=== PATIENT | female | born 1955 | race Caucasian/White ===

== ENCOUNTER 2018-11-09 11:39 | Outpatient (REF) | payer MEDICARE, BC, SELFPAY ==
--- NOTE | 2018-11-09 10:00 | PAPFT_PTH ---
PATIENT: Mag Dan LOC: [facility] U#:[id number] AGE/SX: 63/F ROOM: RE11/09/[address]: Aleks Gonzalez MD : 1955 BED: DIS: 11/09/2018 SPEC #: [id number] RECD: 11/09/18 12:49 STATUS: CUONG REQ #: [id number] DERRICK: 11/09/18 10:[address]: Aleks Gonzalez DEPT: [facility] Cytology RECD BY: Shabnam Maria Tissues: 1 - CX/ENDOCX FOR PAP SMEARS Procedures: PAP THIN PREP/UVM Screening Comments: [id number] (UNSATISFACTORY FOR EVALUATION)
== END 2018-11-09 11:59 ==
LOC: LBN 11:39
PROVIDERS: PCP Family Medicine; Visit Provider Family Medicine
DX: Z12.4 Encounter for screening for malignant neoplasm of cervix (principal); Z11.51 Encounter for screening for human papillomavirus (HPV)
CPT/HCPCS: 88142; 87624

== ENCOUNTER 2019-01-03 09:04 | Outpatient (CLI) | payer MEDICARE, BC, SELFPAY ==
[2019-01-03 11:57] LABS: Hemoglobin A1C 5.6 % (4.5-6.2)
[2019-01-03 12:32] LABS: Anion Gap 6.7 mmol/L (3-11); BUN 21 mg/dL (7-18); CO2 32.3 mmol/L (21.0-32.0); CREATININE 0.92 mg/dL (0.55-1.02); Calcium 9.1 mg/dL (8.5-10.1); Chloride 103 mmol/L (98-107); Cholesterol 181 mg/dL (50-200); Glucose 122 mg/dL (70-100); HDL Cholesterol 34 mg/dL (40-60); LDL CHOLESTEROL 93 mg/dL (<100); Potassium 3.2 mmol/L (3.5-5.1); Sodium 142 mmol/L (136-145); TSH 1.24 uIU/mL (0.358-3.74); Triglyceride 272 mg/dL (30-150)
== END 2019-01-03 09:24 ==
PROVIDERS: PCP Family Medicine; Visit Provider Family Medicine
DX: I10 Essential (primary) hypertension (principal); E03.9 Hypothyroidism, unspecified; R73.9 Hyperglycemia, unspecified; E66.9 Obesity, unspecified
CPT/HCPCS: 36415; 80048; 80061; 83721; 83036; 84443

== ENCOUNTER 2019-11-24 07:00 | Outpatient (CLI) | payer MEDICARE, BC, SELFPAY ==
[2019-11-24 13:47] LABS: Anion Gap 6.5 mmol/L (3-11); BUN 18 mg/dL (7-18); CO2 31.5 mmol/L (21.0-32.0); CREATININE 0.81 mg/dL (0.55-1.02); Chloride 103 mmol/L (98-107); Glucose 122 mg/dL (74-106); Potassium 3.6 mmol/L (3.5-5.1); Sodium 141 mmol/L (136-145); TSH 1.68 uIU/mL (0.36-3.74)
== END 2019-11-24 07:20 ==
PROVIDERS: PCP Family Medicine; Visit Provider Family Medicine
DX: I10 Essential (primary) hypertension (principal)
CPT/HCPCS: 36415; 80048; 84443

== ENCOUNTER 2019-11-24 16:49 | Outpatient (REF) | payer MEDICARE, BC, SELFPAY ==
--- NOTE | 2019-11-24 10:00 | PAPFT_PTH ---
PATIENT: Mag Dan LOC: [facility] U#:[id number] AGE/SX: 64/F ROOM: RE11/24/[address]: Aleks Gonzalez MD : 1955 BED: DIS: 11/24/2019 SPEC #: [id number] RECD: 11/24/19 18:03 STATUS: CUONG REQ #: [id number] DERRICK: 11/24/19 10:[address]: Aleks Gonzalez DEPT: [facility] Cytology RECD BY: Shabnam Maria Tissues: 1 - CX/ENDOCX FOR PAP SMEARS Procedures: PAP THIN PREP/UVM Screening HPV DNA PROBE Comments: [id number]
== END 2019-11-24 17:09 ==
LOC: LBN 16:49
PROVIDERS: PCP Family Medicine; Visit Provider Family Medicine
DX: Z12.4 Encounter for screening for malignant neoplasm of cervix (principal)
CPT/HCPCS: 88142; 87624

== ENCOUNTER 2019-12-26 01:39 | Outpatient (CLI) | payer MEDICARE, BC, SELFPAY ==
--- NOTE | 2019-12-26 10:40 | DI.MAMMO_ITS ---
EXAM: MG MAMMO SCREENING CLINICAL HISTORY: screening, Z12.39. TECHNIQUE: Bilateral full field digital CC and MLO mammographic images were obtained with 3D tomosyn thesis and utilizing computer aided detection (CAD). COMPARISON: Available for comparison. FINDINGS: Masses/Architectural Distortion: None seen. Microcalcifications: No suspicious pleomorphic-type are seen. Skin Thickening/Nipple Retraction: None. IMPRESSION: 1. No significant interval change with no specific features of malignancy noted. 2. Unless there is more urgent need, screening mammography is recommended, as per [employer] guidelines. ACR BI-RAD Category- 1 Negative Breast Density - Category B - Scattered areas of fibroglandular density A negative radiographic report should not delay biopsy if a dominant or clinically suspicious mass is present. Up to ten percent of cancers are not identified on mammography. A negative report may reinforce clinical impression. Adenosis and dense breasts may obscure an underlying neoplasm. False positive reports average 6 to 10%. Patient will receive a letter notifying them of these results.
== END 2019-12-26 01:59 ==
PROVIDERS: PCP Family Medicine; Visit Provider Family Medicine
DX: Z12.31 Encounter for screening mammogram for malignant neoplasm of breast (principal)
CPT/HCPCS: 77063; 77067

== ENCOUNTER 2020-12-24 04:19 | Outpatient (CLI) | payer MEDICARE, BC, SELFPAY ==
[2020-12-24 12:59] LABS: Hemoglobin A1C 5.8 % (<5.7)
[2020-12-24 13:46] LABS: CREATININE 0.8 mg/dL (0.55-1.02); Calculated LDL 100 mg/dL (<100); Cholesterol 198 mg/dL (<200); HDL Cholesterol 36 mg/dL (40-60); Potassium 3.5 mmol/L (3.5-5.1); TSH 1.28 uIU/mL (0.36-3.74); Triglyceride 310 mg/dL (<150)
== END 2020-12-24 04:39 ==
PROVIDERS: PCP Nurse Practitioner; Visit Provider Nurse Practitioner
DX: I10 Essential (primary) hypertension (principal); E66.09 Other obesity due to excess calories; R73.09 Other abnormal glucose; Z86.39 Personal history of other endocrine, nutritional and metabolic disease
CPT/HCPCS: 36415; 80061; 82565; 83036; 84132; 84443

== ENCOUNTER 2021-01-02 02:04 | Outpatient (CLI) | payer MEDICARE, BC, SELFPAY ==
--- NOTE | 2021-01-02 07:15 | DI.MAMMO_ITS ---
EXAM: MAMMO SCREENING CLINICAL HISTORY: screening,Z12.39 TECHNIQUE: Mammograms were interpreted according to the usual protocol including computer analysis w Boni CAD system, tomosynthesis and C-view imaging. COMPARISON: 2011 through 2019 FINDINGS: The breasts are composed of scattered fibroglandular densities, Breast Density category B. No suspicious masses or suspicious microcalcifications are seen. No skin thickening or abnormal axillary lymph nodes are seen. There has been no significant change from prior exams. IMPRESSION: BI-RADS Category 1, Negative mammogram Yearly screening mammography is recommended. Breast Density - Category B, scattered fibroglandular densities. A negative radiographic report should not delay biopsy if a dominant or clinically suspicious mass is present. Up to ten percent of cancers are not identified on mammography. A negative report may reinforce clinical impression. Adenosis and dense breasts may obscure an underlying neoplasm. False positive reports average 6 to 10%. Patient will receive a letter notifying them of these results.
== END 2021-01-02 02:05 ==
LOC: DI 02:04
PROVIDERS: PCP Nurse Practitioner; Visit Provider Nurse Practitioner
DX: Z12.31 Encounter for screening mammogram for malignant neoplasm of breast (principal)
CPT/HCPCS: 77063; 77067

== ENCOUNTER 2021-10-21 09:30 | Outpatient (CLI) | payer MEDICARE, BC, SELFPAY ==
--- NOTE | 2021-10-21 08:45 | DI.RAD_ITS ---
Exam(s) XR HIP RT COMPLETE AP PELVIS EXAM: XR HIP RT COMPLETE AP PELVIS CLINICAL HISTORY: R hip pain. TECHNIQUE: 2D digital imaging was performed. COMPARISON: No exams were available for comparison FINDINGS: No evidence of pelvic nor hip fracture. However, there is advanced osteoarthritic degenerative real e in the right hip joint space narrowing and femoral head osteophytes. Similar findings are not seen in the opposite-left hip although there is a benign cyst in the left femoral neck noted. IMPRESSION: Advanced osteoarthritic degenerative changes in the right hip joint. DATA REPOSITORY: RADIATION DOSE DELIVERED:
--- NOTE | 2021-10-21 08:45 | DI.RAD_ITS ---
Exam(s) XR KNEE RT 3V AP,LAT,JENNIFER EXAM: XR KNEE RT 3V AP,LAT,JENNIFER CLINICAL HISTORY: knee pain. TECHNIQUE: 2D digital imaging was performed. COMPARISON: CR XR KNEE LT 3V AP,LAT,JENNIFER from 10/21/2021 FINDINGS: There is no evidence of fracture although there does appear to be a moderate-sized joint effusion. There are advanced osteoarthritic degenerative changes, including [id number] narrowing of the later al compartment. Moderate degenerative changes in the medial compartment and patellofemoral compartme nts. There is a calcified body noted posteriorly measuring 1.7 x 1.6 cm. This seems to be located p osterolateral and may be a prominent fabella. IMPRESSION: Advanced osteoarthritic degenerative changes, most prominent in the lateral compartment. DATA REPOSITORY: RADIATION DOSE DELIVERED:
--- NOTE | 2021-10-21 08:45 | DI.RAD_ITS ---
Exam(s) XR KNEE LT 3V AP,LAT,JENNIFER EXAM: XR KNEE LT 3V AP,LAT,JENNIFER CLINICAL HISTORY: knee pain. TECHNIQUE: 2D digital imaging was performed. COMPARISON: No exams were available for comparison FINDINGS: There is no evidence of fracture. Small joint effusion. Advanced osteoarthritic degenerative change s in all 3 compartments with [id number] narrowing of both medial lateral compartments on the weight -bearing view. Also advanced severe degenerative change narrowing and osteophytes in the patellofemo ral compartment. Posteriorly there is a prominent calcific density, possibly large fabella. Cannot exclude large posterior calcified loose intra-articular body IMPRESSION: Severe advanced tricompartment osteoarthritic degenerative changes, as described above. DATA REPOSITORY: RADIATION DOSE DELIVERED:
== END 2021-10-21 09:31 | disposition home or self-care (01) ==
LOC: DIORS 09:30
PROVIDERS: PCP Nurse Practitioner; Referring Provider Nurse Practitioner; Visit Provider Student in an Organized Health Care Education/Training Program
DX: M25.551 Pain in right hip (principal); M25.561 Pain in right knee; M16.11 Unilateral primary osteoarthritis, right hip; M17.11 Unilateral primary osteoarthritis, right knee; M17.12 Unilateral primary osteoarthritis, left knee; M25.562 Pain in left knee
CPT/HCPCS: 73562; 99203; 73502

== ENCOUNTER 2021-11-07 01:34 | Outpatient (CLI) | payer MEDICARE, BC, SELFPAY ==
--- NOTE | 2021-11-07 14:00 | DI.RAD_ITS ---
Exam(s) RF JOINT INJECTION FLUORO GUID EXAM: RF JOINT INJECTION FLUORO GUID CLINICAL HISTORY: R HIP INJ UNDER FLUORO,PRIMARY OA RT HIP,M16.11,FLUORO GUIDED INJECTION TECHNIQUE: Fluoroscopy provided. Radiologist not present. CONTRAST MATERIAL: None COMPARISON: No exams were available for comparison FINDINGS: Fluoroscopy was provided for Dr. Godwin during right hip injection. Submitted image(s) reveal needle placement from lateral aspect at the level of the lateral femoral he ad/neck junction. Intra-articular was injected Please refer to the procedure report for complete details. Cumulative Dose: sky Orr=0.867 mGy IMPRESSION: RADIATION DOSE DELIVERED:
[2021-11-07] MEDS: methylPREDNISolone ACETATE 80 MG/ML VIAL IM (14:01)
[2021-11-07] MEDS: Omnipaque 300 MG/ML 10 ML BTL IJ (14:02)
[2021-11-07] MEDS: Bupivacaine 0.5% Pres-Free 10 ML VIAL 5 ML IJ (14:03)
--- NOTE | 2021-11-07 14:05 | W.PROCNOTE ---
Date of service: 11/07/21 Time of Service: 14:05 Procedure Note Date of procedure: 11/07/21 Procedure: Right Hip Injection with Fluoroscopic Guidance Surgeon/Proceduralist/Physician: Agusto Godwin Procedure Diagnosis: Right Hip Osteoarthritis Procedure Indications: Mag has had persistent pain of the RIGHT hip and groin. Noninvasive measures have been tried. To serve as both diagnostic and therapeutic, an injection under fluoroscopy was recommended. I had discussed the risks of the procedure and the patient elected to proceed. Procedure Description: Mag was greeted in the flouroscopy room. The correct side was identified and the consent was reviewed with the patient and signed. The patient was then placed in the supine position on the fluoroscopy table. The RIGHT hip was then prepped with Chloraprep. The anterolateral injection starting point was identiifed by bony landmarks and fluoroscopy. The skin and soft tissue in the tract of the injection was anesthetized with 1% Lidocaine. A spinal needle was then inserted deep into the hip joint at the level of the lateral femoral neck under fluoroscopic guidance. A small amount of Omnipaque solution was injected to confirm intraarticular placement. Once confirmed, the hip was injected with 6cc of 0.5% Bupivicaine and 80mg of Depo-Medrol. A bandaid was placed on the injection site. The patient tolerated the procedure well and noted improvement in pre-injection pain.
--- NOTE | 2021-11-07 14:39 | OPPNE_ITS ---
Date of service: 11/07/21
--- NOTE | 2021-11-07 14:39 | W.PROCNOTE ---
Date of service: 11/07/21
== END 2021-11-07 01:54 ==
PROVIDERS: PCP Nurse Practitioner; Visit Provider Student in an Organized Health Care Education/Training Program
DX: M16.11 Unilateral primary osteoarthritis, right hip (principal); M25.551 Pain in right hip; R10.31 Right lower quadrant pain; M17.12 Unilateral primary osteoarthritis, left knee
CPT/HCPCS: 20610; 77002; J1040

== ENCOUNTER 2022-01-06 01:37 | Outpatient (CLI) | payer MEDICARE, BC, SELFPAY ==
[2022-01-06 10:41] LABS: Hemoglobin A1C 5.7 % (<5.7)
[2022-01-06 11:10] LABS: BUN 24 mg/dL (7-18); CREATININE 0.8 mg/dL (0.55-1.02); Calcium 8.7 mg/dL (8.5-10.1); Chloride 104 mmol/L (98-107); Cholesterol 161 mg/dL (<200); Glucose 118 mg/dL (74-106); HDL Cholesterol 31 mg/dL (40-60); Potassium 3.5 mmol/L (3.5-5.1); Sodium 142 mmol/L (136-145); TSH 1.36 uIU/mL (0.36-3.74); Triglyceride 460 mg/dL (<150)
[2022-01-06 11:29] LABS: LDL CHOLESTEROL 56 mg/dL (<100)
== END 2022-01-06 01:38 | disposition home or self-care (01) ==
LOC: LBO 01:37
PROVIDERS: PCP Nurse Practitioner; Visit Provider Nurse Practitioner
DX: E03.9 Hypothyroidism, unspecified (principal); I10 Essential (primary) hypertension; R73.03 Prediabetes; E78.1 Pure hyperglyceridemia; E78.6 Lipoprotein deficiency
CPT/HCPCS: 36415; 80048; 80061; 83721; 83036; 84443

== ENCOUNTER 2022-03-03 14:43 | Outpatient (CLI) | payer MEDICARE, BC, SELFPAY ==
--- NOTE | 2022-03-03 14:30 | DI.RAD_ITS ---
Exam(s) XR HIP RT COMPLETE AP PELVIS EXAM: XR HIP RT COMPLETE AP PELVIS INDICATION: preop. COMPARISON: CR XR HIP RT COMPLETE AP PELVIS from 10/21/2021 TECHNIQUE: 2D digital imaging was performed. Two views. FINDINGS: The vast degenerative changes of the right hip are again noted with joint space narrowing and promine nt periarticular spurring as well as sclerosis and subchondral cyst formation. Mild degenerative ro nges are noted of the right hip. IMPRESSION: Stable advanced degenerative changes of right hip. DATA REPOSITORY: RADIATION DOSE DELIVERED:
== END 2022-03-03 14:44 | disposition home or self-care (01) ==
LOC: DIORS 14:44
PROVIDERS: PCP Nurse Practitioner; Referring Provider Nurse Practitioner; Visit Provider Student in an Organized Health Care Education/Training Program
DX: M16.11 Unilateral primary osteoarthritis, right hip (principal); M17.12 Unilateral primary osteoarthritis, left knee; M17.11 Unilateral primary osteoarthritis, right knee
CPT/HCPCS: 20610; 73502; J1040

== ENCOUNTER → 2022-03-27 13:50 | Outpatient (BNVA) | payer MEDICARE, BC, SELFPAY | PROVIDERS: PCP Nurse Practitioner; Referring Provider Nurse Practitioner; Visit Provider Physician Assistant | DX: M16.11 Unilateral primary osteoarthritis, right hip (principal) ==

== ENCOUNTER 2022-04-07 03:01 | Outpatient (CLI) | payer MEDICARE, BC, SELFPAY | END 2022-04-07 03:02 | disposition home or self-care (01) | LOC: LBO 03:01 | PROVIDERS: PCP Nurse Practitioner; Visit Provider Student in an Organized Health Care Education/Training Program ==

== ENCOUNTER 2022-04-07 03:17 | Outpatient (CLI) | payer MEDICARE, BC, SELFPAY ==
[2022-04-07 10:51] LABS: HGB 12.7 g/dL (11.2-15.7); MCH 29.4 pg (27.0-33.0); MCHC 33.4 % (32.0-36.0); MCV 88 fL (80-95); MPV 10.2 fL (8.0-11.0); Platelet Count 202 10^3/uL (130-400); RBC 4.32 10^6/uL (3.93-5.22); RDW 13.1 % (11.7-14.6); RDW-SD 42.2 fL; WBC 6.36 10^3/uL (4.4-10.8)
[2022-04-07 11:12] LABS: Hemoglobin A1C 5.6 % (<5.7)
[2022-04-07 11:42] LABS: Anion Gap 6.7 mmol/L (3-11); BUN 21 mg/dL (7-18); CO2 29.3 mmol/L (21.0-32.0); CREATININE 0.8 mg/dL (0.55-1.02); Calcium 8.8 mg/dL (8.5-10.1); Chloride 104 mmol/L (98-107); Glucose 113 mg/dL (74-106); Potassium 3.6 mmol/L (3.5-5.1); Sodium 140 mmol/L (136-145)
[2022-04-07 12:55] LABS: Source Nasal/Nares
[2022-04-07 17:42] LABS: COVID-19 PCR Negative (Negative)
== END 2022-04-07 03:18 | disposition home or self-care (01) ==
LOC: LBO 03:18
PROVIDERS: PCP Nurse Practitioner; Visit Provider Student in an Organized Health Care Education/Training Program
DX: M16.11 Unilateral primary osteoarthritis, right hip (principal); Z01.818 Encounter for other preprocedural examination; R73.03 Prediabetes; Z20.822 Contact with and (suspected) exposure to COVID-19; M25.551 Pain in right hip; Z01.812 Encounter for preprocedural laboratory examination
CPT/HCPCS: 36415; 80048; 85027; 87635; U0005; 83036

== ENCOUNTER 2022-04-08 05:49 | Day surgery (SDC) | payer MEDICARE, BC, SELFPAY ==
--- NOTE | 2022-04-07 13:19 | W.ANESPRE ---
General Info Date of Service Date Performed: 04/08/22 Height: 5 ft 5 in Weight: 103.2 kg Body Mass Index (BMI): 37.8 Surgical Procedure: Operation Date: 04/08/22 07:50 Proposed Procedure Side Surgeon p Hip Total Hip Anterior Right Agusto Godwin MD Meds Allergies and Home Medications Allergies Allergy/AdvReac Type Severity Reaction Status Date / Time latex Allergy Severe Anaphylaxsi Verified 04/08/22 06:12 s Home Medication Medication Instructions Recorded calcium carbonate 600 mg-vitamin 1 ea PO DAILY 07/18/13 D3 5 mcg (200 unit) tablet multivitamin 1 ea PO DAILY 07/18/13 docusate sodium 100 mg capsule 100 mg PO DAILY PRN 12/20/20 (Stool Softener) ibuprofen-diphenhydramine citrate 1 cap PO QHS PRN 12/20/20 200 mg-38 mg tablet (Advil PM) amiloride 5 mg tablet 5 mg PO DAILY #90 tabs 01/09/22 atorvastatin 40 mg tablet 40 mg PO QHS #90 tabs 01/09/22 carvedilol 12.5 mg tablet 12.5 mg PO BID #180 tab-caps 01/09/22 hydrochlorothiazide 50 mg tablet 50 mg PO DAILY #90 tabs 01/09/22 levothyroxine 125 mcg tablet 125 mcg PO DAILY #90 tab-caps 01/09/22 varicella-zoster glycoE [id number] 0.5 ml IM ONCE #1 ea 01/09/22 adj(PF) 50 mcg/0.5 mL IM susp, kit (Shingrix (PF)) acetaminophen 500 mg capsule 1,000 mg PO Q8H PRN PRN #90 caps 04/08/22 aspirin 81 mg tablet,delayed 81 mg PO BID #60 tabs 04/08/22 release celecoxib 200 mg capsule (Celebrex) 200 mg PO BID #60 caps 04/08/22 oxycodone 5 mg tablet 5 mg PO Q4H PRN #18 tabs 04/08/22 pantoprazole 40 mg tablet,delayed 40 mg PO DAILY #30 tabs 04/08/22 release (Protonix) Current Visit Medications: Current Medications Generic Name Dose Route Start Last Admin Trade Name Freq PRN Reason Stop Dose Admin Acetaminophen 1,000 mg 04/08/22 06:00 Acetaminophen 500 Mg Tab PO PREOP ELIANE Celecoxib 400 mg 04/08/22 06:00 Celecoxib 200 Mg Cap PO PREOP ELIANE Tranexamic Acid 1,000 mg/ 60 mls @ 360 mls/hr 04/08/22 06:00 Sodium Chloride IV PREOP ELIANE Ringer's Solution 1,000 mls @ 80 mls/hr 04/08/22 06:00 IV 05/07/22 23:59 INFUSION ELIANE Cefazolin Sodium/Dextrose 2 gm in 50 mls @ 100 mls/hr 04/08/22 06:00 Ancef Duplex IVPB 05/07/22 23:59 PREOP ELIANE IV Miscellaneous Supplies 1 each 04/08/22 06:00 Iv Access IV 05/07/22 23:59 DIRECTED ELIANE Sodium Chloride 0 ml 04/08/22 06:00 Normal Saline Flush 10 Ml Syr IV 05/07/22 23:59 PRN PRN Sodium Chloride 0 ml 04/08/22 06:00 Normal Saline 10 Ml Vial IJ 05/07/22 23:59 DIRECTED PRN PFSH Active Problems Active Problems: Problem Status Onset Code Osteoarthritis of right hip M16.11 Hyperlipidemia E78.5 Prediabetes R73.03 Lipoma D17.9 Insomnia G47.00 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 Psoriasis L40.9 Obesity E66.9 Hypothyroidism 08/11/13 E03.9 Generalized osteoarthrosis M15.9 Essential hypertension I10 Allergic rhinitis J30.9 Medical History Medical History High triglycerides History of tobacco use smoked 1 pack/day ages 18-35 Low HDL (under 40) Primary osteoarthritis of left knee Primary osteoarthritis of right hip Primary osteoarthritis of right knee Psoriasis Surgical History Surgical History History of section History of dilation and curettage Repair of umbilical hernia (~2001) x 2 Tobacco Smoking/Tobacco Use Status: Former Tobacco Use Passive smoking exposure: Yes Second hand exposure: Yes Alcohol Alcohol Intake: former Substance Use Substance use: Never Substance use type: does not use Vital Signs and Lab Results Lab Results Blood Type / Crossmatch: No Data to Display Complete Blood Count: White Blood Count 6.36 10^3/uL (4.4-10.8) 04/07/22 10:45 Red Blood Count 4.32 10^6/uL (3.93-5.22) 04/07/22 10:45 Hemoglobin 12.7 g/dL (11.2-15.7) 04/07/22 10:45 Hematocrit 38.0 % (36.0-46.0) 04/07/22 10:45 Platelet Count 202 10^3/uL (130-400) 04/07/22 10:45 Complete Metabolic Panel: Sodium Level 140 mmol/L (136-145) 04/07/22 10:45 Potassium Level 3.6 mmol/L (3.5-5.1) 04/07/22 10:45 Chloride Level 104 mmol/L (98-107) 04/07/22 10:45 Carbon Dioxide Level 29.3 mmol/L (21.0-32.0) 04/07/22 10:45 Blood Urea Nitrogen 21 mg/dL (7-18) H 04/07/22 10:45 Creatinine 0.8 mg/dL (0.55-1.02) 04/07/22 10:45 Estimated GFR/1.73 m2 >= 60.00 (mL/min/1.73m2) 04/07/22 10:45 Calcium Level 8.8 mg/dL (8.5-10.1) 04/07/22 10:45 Glucose Level 113 mg/dL (74-106) H 04/07/22 10:45 Hemoglobin A1c 5.6 % (<5.7) 04/07/22 10:45 Liver Function Panel: No Data to Display Coagulation Panel: No Data to Display Cardiac Panel: No Data to Display Arterial Blood Gas: No Data to Display Venous Blood Gas: No Data to Display Pancreas Panel: No Data to Display Thyroid Panel: No Data to Display Infectious Disease: Coronavirus (COVID-19)(PCR) Negative (Negative) 04/07/22 10:55 Coronavirus 2019 Source Nasal/Nares 04/07/22 10:55 Blood Cultures: No Data to Display Toxicology Panel: No Data to Display Anesthesia Assessment and Plan Anesthesia History Personal History: No History of Anesthesia Complications Family History: No Family History of Anesthesia Complications Exercise Tolerance Exercise Tolerance: Metabolic Equivalents>4 Pertinent Negatives Pertinent Negatives: No Symptoms of GERD, No Major Cardiovascular Symptoms or Complaints, No Major Pulmonary Symptoms or Complaints and No History of CVA/TIA Cardiac & Pulmonary Exam Cardiac Exam: Normal S1/S2 Heart Sounds Pulmonary Exam: Clear Bilateral Breath Sounds Implantable Cardiac Device Does patient have a Pacemaker or an ICD?: No Airway Exam Known Difficult Airway: No Mallampati Class: 2 Mouth Opening: Normal (> 3cm) Thyromental Distance: Greater than 3 cm Neck Range of Motion: Full ROM Neck Circumference: Normal Teeth Condition: Normal Dentition ASA Classification ASA Score: ASA 2 Emergency Case?: No NPO Status NPO Status: NPO Clears >2 hours, Solids >8 hours Anesthesia Plan Resuscitation Status: Full Code Anesthesia Technique: Spinal Anesthesia Airway Planned: Natural Airway Monitors Used: Standard Monitors
[2022-04-08] VITALS (7 sets, daily range): BP systolic 83–133; BP diastolic 42–75; PULSE 56–72; RESP 11–16; TEMP 36.1–36.6; O2SAT 95–98; BMI 37.8
--- NOTE | 2022-04-08 06:20 | W.PM.DSUDISC ---
Discharge Plan Disposition Patient Disposition: HOME Condition: Stable Discharge Details Reason For Visit: Right RHONDA Attending Provider: Agusto Godwin Primary Care Provider: Ivy Yo Home Meds and New Rx's Prescriptions: New celecoxib [Celebrex] 200 mg capsule 200 mg PO BID Qty: 60 0RF aspirin 81 mg tablet,delayed release (DR/EC) 81 mg PO BID Qty: 60 0RF pantoprazole [Protonix] 40 mg tablet,delayed release (DR/EC) 40 mg PO DAILY Qty: 30 0RF acetaminophen 500 mg capsule 1,000 mg PO Q8H PRN PRNQty: 90 0RF oxycodone 5 mg tablet 5 mg PO Q4H PRNQty: 18 0RF Continued docusate sodium [Stool Softener] 100 mg capsule 100 mg PO DAILY PRN Advil PM 200-38 mg tablet 1 cap PO QHS PRN Shingrix (PF) 50 mcg/0.5 mL suspension for reconstitution 0.5 ml IM ONCE Qty: 1 1RF Rx Instructions: as a single dose amiloride 5 mg tablet 5 mg PO DAILY Qty: 90 4RF atorvastatin 40 mg tablet 40 mg PO QHS Qty: 90 3RF carvedilol 12.5 mg tablet 12.5 mg PO BID Qty: 180 4RF hydrochlorothiazide 50 mg tablet 50 mg PO DAILY Qty: 90 4RF levothyroxine 125 mcg tablet 125 mcg PO DAILY Qty: 90 4RF calcium carbonate-vitamin D3 1 EACH tablet 1 ea PO DAILY multivitamin 1 EACH capsule 1 ea PO DAILY Discharge Instructions Additional Instructions: Total Hip Discharge Instructions Activity: The most important activity is to walk. You should try to take short walks a few times a day. You have no restrictions on movement or positioning, but do not try to force what you do. You will find some stiffness and weakness with hip flexion (lifting your knee). Do not try to strengthen this too early, continue to practice walking and stairs and this will come. - Outpatient physical therapy can be helpful to help return you to a normal gait and improve your flexibility and strength. This can start around 2 weeks. For some patients, it?s not necessary. Usually this is determined at the time of discharge or at the first post-operative visit. - You should wear the MICHELL hose on both legs for 2 weeks. Dressing: Keep the surgical dressing in place for at least one week. After the first week it may be removed and replace with light gauze and tape or nothing. It may get wet after 3 days but avoid soaking the dressing. If it gets wet, just lightly pat dry. It is important to always keep some gauze between skin folds, especially when you are sitting. Spend some time with the wound exposed when you are lying flat as the incision does wrinkle onto itself. Medications: - You should take Tylenol and an anti-inflammatory Celebrex as your primary pain control medications. If the Celebrex is too expensive or not covered, please call the office for another alternative (Advil/Ibuprofen or Naproxen/Aleve). - You have been prescribed a stronger pain medication Oxycodone for breakthrough pain, take as needed as prescribed. - You have also been prescribed a stomach acid reduction agent Pantoprozole to help reduce stomach acid and reflux. - You will be taking Aspirin 81mg twice a day for DVT prevention unless instructed otherwise. - If you have constipation you should take Colace or Miralax (both [id number]). It takes most people 3-4 days to have a bowel movement. Follow-up: 2 weeks If you have any acute concerns or questions, please do not hesitate to contact the office at [phone]. You may contact Dr. Godwin with any questions after hours through the hospital at [phone] or on his cell phone at [phone]. Referrals: Agusto Godwin MD [ [facility] STAFF PHYSICIAN] - Equipment/Supplies: Walker Activity:: Activity as Tolerated Remove Dressings/Wound Care:: Do Not Remove Shower/Bathe:: 72 hours Diet:: As Tolerated Discharge Orders Discharge Orders: Discharge Order (Routine); Ordered 04/08/22 Ordered By: Merry Mcintosh
[2022-04-08] MEDS: Celecoxib 200 MG CAP 400 MG PO (06:33)
[2022-04-08] MEDS: Acetaminophen 500 MG TAB 1000 MG PO (06:34)
[2022-04-08] MEDS: Lactated Ringers 1,000 ML 80 ML IV (06:50)
[2022-04-08] MEDS: ceFAZolin 2 GM/50 ML BAG IVPB (07:48)
--- NOTE | 2022-04-08 08:44 | DI.RAD_ITS ---
Exam(s) XR HIP RT IN OR EXAM: XR HIP RT IN OR CLINICAL HISTORY: OA RIGHT HIP. TECHNIQUE: 2D digital imaging was performed. COMPARISON: No exams were available for comparison FINDINGS: Fluoroscopy was provided intraoperatively during right hip arthroplasty. See procedure report for details. Total fluoroscopy time 28 seconds Cumulative dose= 5.2391mGy IMPRESSION: DATA REPOSITORY: RADIATION DOSE DELIVERED:
--- NOTE | 2022-04-08 09:26 | ROE_ITS ---
Date of service: 04/08/22 Time of Service: 09:00 Operative Note Operative Note DATE OF PROCEDURE: 04/08/22 PRE-OP DIAGNOSIS: Right Hip Osteoarthritis POST-OP DIAGNOSIS: same PROCEDURE: Right Anterior Total Hip Arthroplasty with Intraoperative Navigation SURGEON: Agusto Godwin ANESTHESIA TYPE: Spinal Refer to Anesthesia Record ESTIMATED BLOOD LOSS: 250 PATHOLOGY: none sent TOURNIQUET TIME: 0 COMPLICATIONS: None Patient was transported to: PACU Patient's condition: stable Implants: 1. Depuy Westbrook Acetabular Component, 52mm 2. Depuy Acetabular Liner, [id number] 3. Depuy Corail Standard 125 Collared Femoral Stem, Size 11 4. Depuy Altrx Ceramic Femoral Head, Size 36+1.5mm Indications: I have seen Mag in clinic for symptoms of hip arthritis, confirmed with radiographic findings. She has exhausted nonoperative methods and was having significant limitations in daily function and desired better function and less pain. I discussed the technical details of a hip replacement. I explained the risks of the procedure to include, but not limited to, bleeding, infection, pain, stiffness, fracture, damage to nerves and vessels, damage to muscles and tendons, loosening, instability, leg length inequality, need for repeat procedure, blood clot and cardiopulmonary demise. Despite these risks, Mag elected to proceed. Findings: There was significant signs of arthritis throughout the hip with complete loss of cartilage along the entire femoral head. Procedure Description: Mag was greeted in the preoperative holding area where the correct side was identified and marked. The consent was reviewed with the patient and signed. The history and physical was updated. All questions were answered. She was taken back to the operating room. A spinal anesthestic was then administered. The feet were wrapped with cast padding and Coban and then placed into the boot liners and then into the boots. Care was taken to protect the skin and make sure the heels were fully down and the boots were stable. The patient was then positioned onto the HANA table. Both legs were held in a neutral position. SCDs were applied. The patient was then slid down onto a peroneal post. Prophylactic antibiotics in the form of Cefazolin were administered. 1g of Tranxemic Acid was given intravenously within 30 minutes of incision. The right leg was then prepped with Chloraprep and draped in a standard fashion. A second prep with Chloraprep was performed prior to placement of a shower-curtain type drape with Iodine impregnated skin protection. A timeout to confirm correct identity, side and site, procedure, allergies, anesthesia, and medical concerns was performed. An obliquely oriented incision was made starting lateral to the ASIS and running distal over the Tensor Fascia Fide (TFL) muscle belly toward the fibular head, approximately 10cm. The skin and soft tissue was dissected sharply, through Gregory?s fascia, and to the fascia of the TFL. With the fascia and superior border of the IT band identified, the fascia was incised with a new knife just above any perforators from the IT band. The TFL muscle belly was bluntly dissected away from the fascia and moved laterally. The fat between TFL and rectus was identified to ensure the dissection was not within the TFL. Blunt dissection created space between abductors and the capsule and retractor was placed over the lateral femoral neck. The fibers of the rectus femoris tendon were identified and these were freed from the anterior capsule. A second cobra retractor was placed around the medial femoral neck. The TFL was further retracted laterally to show the deep fascia. Careful dissection through this layer identified three main crossing vessels of the lateral femoral circumflex. These were cauterized in multiple locations and then cut without any noticeable bleeding. The TFL was further released bluntly from the deep fascia to expose anterior hip capsule and fat The Dave orthopaedic retractor was then placed beneath the TFL and against sartorius and medial soft tissues to protect and retract the soft tissues. A T-capsulotomy was then performed starting at the superior lateral acetabulum and moving distally to the intertrochanteric ridge. These capsular flaps were tagged with a No. 1 Ethibond and elevated from within. The capsular flaps were released to the shoulder of the lateral neck and to the lesser trochanter to give excellent visualization of the proximal femur. A neck osteotomy was performed using an oscillating saw based on preoperative templates. This cut started in the shoulder and of the lateral neck and exited medially. The saw was at all times directed medially to avoid injury to the greater trochanter. Gross traction was applied to the leg and the osteotomy opened. The femoral head was removed with a corkscrew, making sure to protect the TFL on its exit. Traction was released after head removal. This was measured on the back table to determine the starting reamer size. Portions of the rectus obscuring visualization were minimally elevated off the superior acetabulum. An anterior retractor was placed over the anterior wall between capsule and labrum and attached to the Gripper retraction system. The femur was rotated to 90 degrees and medial capsule was fully released until the lesser trochanter was palpable and visible; the femur was returned to 30 degrees. A posterior retractor was placed similarly between capsule and labrum. This provided excellent visualization. The contents of the cotyloid fossa were heide galina with electrocautery and the labrum was removed with a knife. There was significant chondromalacia of the superior acetabulum. Acetabular reaming began with a 48mm reamer. This first reaming was directed anterior to posterior and medial to get down to the true floor. This was inspected and reamed until the true floor was reached. The anterior retractor was then released and entry and exit was provided by traction on the capsular flaps. I then reamed sequentially up to a 52mm reamer where good fit was obtained. The larger reamers were oriented based on anatomical reference of the anterior and lateral jennings to ensure proper abduction and anteversion. Positioning and size was confirmed with the fluoroscopy. A 52mm Depuy Westbrook acetabular component was selected. The acetabulum was reamed around the periphery with the selected acetabular size to prevent a rim fit. The deep tissues were irrigated. The acetabular component was then impacted in a position of about 40-45 degrees of abduction and 15-20 degrees of anteversion, using the patient?s anatomy as the ultimate landmark. Fluoroscopy was used to confirm this. There was excellent pcts of the acetabular component and the inserting handle was removed. The acetabular liner, Depuy [id number] polyethylene liner, was inserted and lined up with the tines of the acetabular component. There was no soft tissue interposition. The liner was then impacted into position and confirmed to be well-seated. A portion of the damaso-articular cocktail was then injected around the acetabulum into the capsule and periosteum. This cocktail consisted of 123mg of Ropivacaine, 0.25mg of Epinephrine, 0.04mg of Clonidine, and 15mg of Ketorolac, diluted to 50cc. The leg was rotated to 120 degrees. Any remaining medial capsule was released until the lesser trochanter was easily palpable. A retractor was placed medially. The lateral capsule was further released into the shoulder to allow access to the greater trochanter. A Yoon retractor was placed over the greater trochanter which allowed the trochanter to flip in front of the capsule for excellent exposure. The leg was brought down into maximal extension and 20 degrees of adduction while ensuring there was no impingement on the acetabulum. Any remnant capsule within the trochanter was released. Piriformis and obturator externis were identified and protected. There was excellent access to the proximal femur. The lateral neck remnant was removed with a rongeur. A blunt canal probe was used to identify the canal and trajectory for later broaching. A box osteotome initiated the broach course. A small curved rasp and a curved curette were used to work laterally. Broaching then began with a size 8 Corail broach. This was inserted manually around the trochanter and into the canal before mallet blows. The broach was seated to a few millimeters below the cut level based on the neck cut and the preoperative template. Sequential broaching was continued with the [employer] pneumatic broaching device until a tight fit was obtained with good rotational control of the femur. A trial standard 125 neck was inserted along with a +1.5 trial head. The leg was brought out of extension and adduction and then reduced with traction and internal rotation. The leg was stable anteriorly in a position of 30 degrees of extension and 90 degrees of external rotation. Fluoroscopy was used to ensure there was no fracture and the stem was seated well. Leg lengths were checked with an AP pelvis and pelvic reference points. [employer] navigation system was used to confirm appropriate positioning and leg length and offset. The leg length was slightly more than planned so I advanced the broach approximately 5mm. Once content with the desired offset and leg lengths, the leg was brought back into extension, external rotation and adduction. The periosteum and surrounding tissue was injected with remaining portion of the damaso-articular cocktail. The proximal femur was irrigated as well as the deep tissues. The Depuy Corail standard 125 collared stem, size 11, was then manually inserted into the proximal femur making sure to control rotation. It was then malleted into position with light blows, giving breaks to allow bone expansion and decrease risk of fracture. The selected Depuy Altrx Ceramic Head, size 36+1.5mm, was then placed onto the clean and dry trunnion and secured with impaction onto the tapered fit. The leg was brought back out of extension and adduction and reduced with traction and internal rotation. Stability was confirmed with no shuck at 90 degrees of external rotation and 30 degrees of extension. No impingement through range of motion arc. Final x-ray images were obtained with fluoroscopy to confirm adequate positioning and no intraoperative fracture. The deep tissues were thoroughly irrigated with Surgiphor, betadine solution. This was allowed to sit in the wound for 3 minutes before being thoroughly irrigated out with normal saline. The capsule was then reapproximated with the previously placed Ethibond sutures. The TFL fascia was finally closed with a No. 2 Stratafix, barbed suture. Deep tissues were then reapproximated with 0 Vicryl and a running 2-0 Vicryl. The skin was closed with a running 4-0 Monocryl in a subcuticular fashion. This was reinforced with skin glue. A Mepilex silver dressing was applied. At the end of the case, all counts were correct. Mag was transferred to the hospital bed without difficulty and suffering no apparent complication. She has a good prognosis. Physical therapy will start today and without restrictions, weight-bearing as tolerated. Aspirin 81mg BID will be used for DVT prophylaxis.
[2022-04-08] MEDS: oxyCODONE 5 MG TAB PO (10:21)
--- NOTE | 2022-04-08 10:38 | W.ANESPOSTOP ---
Postoperative Evaluation Date, Time and Location Date Performed: 04/08/22 Time Performed: : Patient Location: Day Surgery Unit Vital Signs Most Recent Imported Vital Signs: Most Recent Vital Signs Temp Pulse Resp BP Pulse Ox 36.3 C L 60 16 122/65 98 04/08/22 10:22 04/08/22 10:22 04/08/22 10:04/08/22 10:04/08/22 10: Pain Score Most Recent Pain Score: Most Recent Pain Score Pain Level 1 04/08/22 10:22 Assessment Mental Status: Awake (Alert & Oriented to Patient Baseline) Airway and Respiratory Function: Patent airway with normal (patient baseline) respiratory exam Cardiovascular Function: Hemodynamically Stable Hydration Status: Adequately Hydrated Nausea & Vomiting: No Nausea or Vomiting Pain: Pt. Denies Any Pain Peripheral Nerve Block: Other (Spinal wearing off. Cleared to discharge once spinal has completely resolved. )
--- NOTE | 2022-04-08 12:01 | IN_ITS ---
PT Notes Visit Reasons: Right RHONDA Inpatient Physical Therapy Evaluation Date: 04/08/22 Referring Doctor: Dr. Godwin PT Orders: PT CONSULT: right hip OA s/p RHNODA Patient Profile/Admitting Diagnosis: Patient being seen in Day Surgery for gait and transfer training, post op day 0 s/p right RHONDA with anterior approach. PMHX: High triglycerides History of tobacco use smoked 1 pack/day ages [age] Low HDL (under 40) Primary osteoarthritis of left knee Primary osteoarthritis of right hip Primary osteoarthritis of right knee Surgical History?(Updated 03/27/22 @ 14:07 by Vonda Arzate) History of section Repair of umbilical hernia (~2001) x 2 Social History/Home Situation: Patient lives in private home with 4 NOAH with bilat rails. Recently retired hairdresser. Equipment Owned/DME: none Subjective: Mag states that she is feeling good. She's anxious to get up walking. Objective: General Observation: Resting comfortably in bed at initiation of session. No lines. Mental Status: A&Ox3. Pleasant and cooperative throughout session. Pain: denies initially; describes right lateral thigh pain with weight bearing, improving with ambulation ROM: Right Upper Extremity: WFL Left Upper Extremity: WFL Right Lower Extremity: hip ROM allows for 80 degrees flexion functionally, 90 degrees knee flexion functionally Left Lower Extremity: hip ROM allows for 80 degrees flexion functionally, 90 degrees knee flexion functionally Strength: Right Upper Extremity: WFL Left Upper Extremity: WFL Right Lower Extremity: Quads 3/5 or greater. Ankle DF 3/5 or greater Left Lower Extremity: WNL Sensation: intact distally Bed Mobility/Transfers: supine-sit: supervision sit-stand: supervision stand-sit: supervision with minimal cues for hand placement Gait: Patient ambulates 50'x2 with FWW and CGA - supervision. Stairs: Patient manages therapeutic stairs, 6x2, ascending and descending with bilat UE support to rails. Balance: Static Sitting: normal Dynamic Sitting: good Static Standing: fair Dynamic Standing: fair Informed Consent/Education: Patient instructed in purpose of PT consult and plan of care. Assessment: Patient is a 66 year old female referred to physical therapy services with the diagnosis of right hip OA, post op day 0 s/p right RHONDA with anterior approach. Patient presents with clinical signs and symptoms consistent with post-op status, as demonstrated by the following impairment level findings: 1. gait impairments 2. decreased activity tolerance 3. decreased LE strength 4. post-operative pain Impairments are contributing to the following functional limitations: 1. decreased independence with ambulation 2. decreased independence with stairs 3. unable to ambulate community distances Patient is assessed as a Low [id number] complexity based on the following: History: independent 66 year old female presenting post-op day 0 s/p right RHONDA. She demonstrates good safety awareness and FWW management, despite expected deficits in strength and activity tolerance. Demonstrates mobility sufficient to allow for safe return home today with family support. Examination: functional limitations as noted above Presentation: stable Decision Making: low complexity Plan of Care/Treatment Plan: Discharge home with FWW and family support. DISCHARGE RECOMMENDATIONS: Home with no services. TREATMENT CODE/TIME: 11:20-11:45 ([id number]) Malika Partida, PT, DPT [facility]
== END 2022-04-08 12:44 | disposition home or self-care (01) ==
PROVIDERS: PCP Nurse Practitioner; Visit Provider Student in an Organized Health Care Education/Training Program
PROC: (CPT 27130; principal; 2022-04-08 07:30)
DX: M16.11 Unilateral primary osteoarthritis, right hip (principal); R73.03 Prediabetes; I10 Essential (primary) hypertension; E66.9 Obesity, unspecified; Z68.37 Body mass index [BMI] 37.0-37.9, adult
CPT/HCPCS: 20985; 27130; C1776; 97161; 73501; J0690; J1100; J2370; J2405

== ENCOUNTER 2022-04-28 14:38 | Outpatient (CLI) | payer MEDICARE, BC, SELFPAY ==
--- NOTE | 2022-04-28 14:30 | DI.RAD_ITS ---
Exam(s) XR HIP RT COMPLETE AP PELVIS EXAM: XR HIP RT COMPLETE AP PELVIS INDICATION: 1ST POST OP R RHONDA. COMPARISON: CR XR HIP RT COMPLETE AP PELVIS from 03/03/2022 XA XR HIP RT IN OR from 04/08/2022 TECHNIQUE: 2D digital imaging was performed. Two views. FINDINGS: There has been no change in the right hip prosthesis. No spine suspicious bony lucencies are seen. There are mild degenerative changes of the left hip. DATA REPOSITORY: RADIATION DOSE DELIVERED:
== END 2022-04-28 14:39 | disposition home or self-care (01) ==
LOC: DIORS 14:38
PROVIDERS: PCP Nurse Practitioner; Referring Provider Nurse Practitioner; Visit Provider Physician Assistant
DX: Z96.641 Presence of right artificial hip joint (principal); Z47.1 Aftercare following joint replacement surgery
CPT/HCPCS: 73502

== ENCOUNTER → 2022-05-30 10:51 | Outpatient (BNVA) | payer MEDICARE, BC, SELFPAY | PROVIDERS: PCP Nurse Practitioner; Referring Provider Nurse Practitioner; Visit Provider Student in an Organized Health Care Education/Training Program | DX: Z47.1 Aftercare following joint replacement surgery (principal); Z96.641 Presence of right artificial hip joint ==

== ENCOUNTER → 2022-07-21 13:21 | Outpatient (BNVA) | payer MEDICARE, BC, SELFPAY | PROVIDERS: PCP Nurse Practitioner; Referring Provider Nurse Practitioner; Visit Provider Student in an Organized Health Care Education/Training Program | DX: M17.12 Unilateral primary osteoarthritis, left knee (principal) | CPT/HCPCS: 20610; J1040 ==

== ENCOUNTER 2023-01-29 03:11 | Outpatient (CLI) | payer MEDICARE, BC, SELFPAY ==
[2023-01-29 13:25] LABS: ALT 32 U/L (14-59); AST 32 U/L (15-37); Albumin 3.1 g/dL (3.4-5.0); Alkaline Phosphatase 90 U/L (46-116); Anion Gap 5.6 mmol/L (3-11); BUN 18 mg/dL (7-18); Bilirubin, Total 0.7 mg/dL (0.2-1.0); CO2 32.4 mmol/L (21.0-32.0); CREATININE 0.8 mg/dL (0.55-1.02); Calcium 9.1 mg/dL (8.5-10.1); Chloride 103 mmol/L (98-107); Cholesterol 138 mg/dL (<200); Estimated GFR 79.71 (mL/min/1.73m2); Glucose 131 mg/dL (74-106); HDL Cholesterol 30 mg/dL (40-60); Potassium 3.5 mmol/L (3.5-5.1); Sodium 141 mmol/L (136-145); TSH (W/Ref FT4) 1.28 uIU/mL (0.36-3.74); Triglyceride 418 mg/dL (<150)
[2023-01-29 13:47] LABS: LDL CHOLESTEROL 42 mg/dL (<100)
== END 2023-01-29 03:12 | disposition home or self-care (01) ==
LOC: LOS 03:11
PROVIDERS: PCP Nurse Practitioner Family; Visit Provider Nurse Practitioner Family
DX: E03.9 Hypothyroidism, unspecified (principal); E78.5 Hyperlipidemia, unspecified; I10 Essential (primary) hypertension; R73.03 Prediabetes; G47.00 Insomnia, unspecified; E66.8 Other obesity
CPT/HCPCS: 36415; 80053; 80061; 83721; 84443

== ENCOUNTER 2023-02-10 01:21 | Outpatient (CLI) | payer MEDICARE, BC, SELFPAY ==
--- NOTE | 2023-02-10 07:30 | DI.MAMMO_ITS ---
Exam(s) MAMMO SCREENING EXAM: MAMMO SCREENING CLINICAL HISTORY: screening,z12.39 TECHNIQUE: Bilateral full field digital CC and MLO mammographic images were obtained with 3D tomosyn thesis and utilizing computer aided detection (CAD). COMPARISON: Available for comparison. FINDINGS: Masses/Architectural Distortion: There is stable nodules in the upper outer quadrants of both breasts . No suspicious nodules or areas of architectural distortion are present. Microcalcifications: No suspicious pleomorphic-type are seen. Skin Thickening/Nipple Retraction: None. IMPRESSION: 1. No significant interval change with no specific features of malignancy noted. 2. Unless there is more urgent need, screening mammography is recommended, as per [place] [employer] guidelines. BI-RADS Category 2 - Benign Findings Breast Density - Category B - Scattered areas of fibroglandular density Breast density category C or D implies that the patient has dense breast tissue. Dense breast tissue is very common and is not abnormal but dense breast tissue can make it harder to find cancer on a ma mmogram. Also, dense breast tissue may increase their breast cancer risk. This information about the result of the mammogram report was provided to the patient to raise their awareness. Use this report when you speak with the patient about their risks for breast cancer, which includes their family hist ory. At that time, you may recommend for more screening tests (Ultrasound or MRI) as they might be us eful based on their risk. A negative radiographic report should not delay biopsy if a dominant or clinically suspicious mass is present. Up to ten percent of cancers are not identified on mammography. A negative report may reinforce clinical impression. Adenosis and dense breasts may obscure an underlying neoplasm. False positive reports average 6 to 10%. Patient will receive a letter notifying them of these results.
== END 2023-02-10 01:41 ==
LOC: DI 01:21
PROVIDERS: PCP Nurse Practitioner Family; Visit Provider Nurse Practitioner Family
DX: Z12.31 Encounter for screening mammogram for malignant neoplasm of breast (principal)
CPT/HCPCS: 77063; 77067

== ENCOUNTER 2023-04-13 10:39 | Outpatient (CLI) | payer MEDICARE, BC, SELFPAY ==
--- NOTE | 2023-04-13 10:15 | DI.RAD_ITS ---
Exam(s) XR HIP RT AP LAT ONLY EXAM: XR HIP RT AP LAT ONLY CLINICAL HISTORY: right hip pain. TECHNIQUE: 2D digital imaging was performed. Two images were obtained. AP and lateral views were ob tained. COMPARISON: CR XR HIP RT COMPLETE AP PELVIS from 04/28/2022 FINDINGS: BONES: There are stable postoperative changes of a right total hip replacement. There is no acute fr acture or dislocation. No fracture or dislocation. JOINTS: The orthopedic hardware is in good position. No evidence of hardware loosening. SOFT TISSUE: Normal. IMPRESSION: Stable postoperative changes. DATA REPOSITORY: RADIATION DOSE DELIVERED:
== END 2023-04-13 10:40 | disposition home or self-care (01) ==
LOC: DIORS 10:40
PROVIDERS: PCP Nurse Practitioner Family; Referring Provider Nurse Practitioner Family; Visit Provider Student in an Organized Health Care Education/Training Program
DX: Z96.641 Presence of right artificial hip joint (principal); Z47.1 Aftercare following joint replacement surgery; M17.12 Unilateral primary osteoarthritis, left knee
CPT/HCPCS: 20610; 73502; J1040

== ENCOUNTER 2024-01-28 03:43 | Outpatient (CLI) | payer MEDICARE, BC, SELFPAY ==
[2024-01-28 12:42] LABS: HGB 12.1 g/dL (11.2-15.7); MCH 28.2 pg (27.0-33.0); MCHC 31.8 % (32.0-36.0); MCV 89 fL (80-95); MPV 10.2 fL (8.0-11.0); Platelet Count 184 10^3/uL (130-400); RBC 4.29 10^6/uL (3.93-5.22); RDW 13.7 % (11.7-14.6); RDW-SD 44.6 fL
[2024-01-28 13:01] LABS: Anion Gap 6.5 mmol/L (3-11); BUN 16 mg/dL (7-18); CO2 31.5 mmol/L (21.0-32.0); Calcium 9.3 mg/dL (8.5-10.1); Calculated LDL 39 mg/dL (<100); Chloride 103 mmol/L (98-107); Cholesterol 125 mg/dL (<200); Estimated GFR 60.61 (mL/min/1.73m2); Glucose 137 mg/dL (74-106); HDL Cholesterol 36 mg/dL (40-60); Potassium 3.3 mmol/L (3.5-5.1); Sodium 141 mmol/L (136-145); TSH (W/Ref FT4) 1.52 uIU/mL (0.36-3.74); Triglyceride 252 mg/dL (<150)
== END 2024-01-28 03:44 | disposition home or self-care (01) ==
LOC: LOS 03:44
PROVIDERS: PCP Nurse Practitioner Family; Visit Provider Nurse Practitioner Family
DX: E78.5 Hyperlipidemia, unspecified (principal); Z00.00 Encounter for general adult medical examination without abnormal findings; R73.03 Prediabetes; E66.09 Other obesity due to excess calories; Z68.35 Body mass index [BMI] 35.0-35.9, adult; E03.9 Hypothyroidism, unspecified; I10 Essential (primary) hypertension
CPT/HCPCS: 36415; 80048; 80061; 85027; 84443

== ENCOUNTER 2024-10-13 15:43 | Outpatient (CLI) | payer MEDICARE, BC, SELFPAY ==
--- NOTE | 2024-10-13 09:30 | DI.RAD_ITS ---
Exam(s) XR KNEE LT 1V XR STANDING ALIGNMENT EXAM: XR STANDING ALIGNMENT CLINICAL HISTORY: LEFT KNEE PAIN. TECHNIQUE: 2D digital imaging was performed. Standing AP views were performed from the pelvis throu gh the ankles. Lateral view left knee COMPARISON: CR XR KNEE LT 3V AP,LAT,JENNIFER from 10/21/2021 CR XR KNEE RT 3V AP,LAT,JENNIFER from 10/21/2021 CR XR HIP RT AP LAT ONLY from 04/13/2023 CR XR KNEE LT 1V from 10/13/2024 FINDINGS: BONES: No acute fracture is present. No bony destructive lesion is seen. Leg length discrepancy: No significant overall leg length discrepancy. JOINTS: Knees: Severe narrowing of the medial femoral tibial joint space of the left knee, bone-on-nyasia ne with prominent periarticular spurring. Mild varus angulation. Degenerative changes also present in the right knee, greater laterally. The ankle joints are unremarkable. Hips: Stable appearance of right hip prosthesis. Left hip joint space is maintained. SOFT TISSUE: Normal. IMPRESSION: Severe degenerative changes of the right knee. Moderate degenerative changes of the left knee. No significant leg length discrepancy. DATA REPOSITORY: RADIATION DOSE DELIVERED:
== END 2024-10-13 15:44 | disposition home or self-care (01) ==
LOC: DIORS 15:43
PROVIDERS: PCP Nurse Practitioner Family; Referring Provider Nurse Practitioner Family; Visit Provider Student in an Organized Health Care Education/Training Program
DX: M17.12 Unilateral primary osteoarthritis, left knee (principal)
CPT/HCPCS: 99213; 73560; 77073

== ENCOUNTER 2024-11-21 02:37 | Outpatient (CLI) | payer MEDICARE, BC, SELFPAY ==
[2024-11-21 11:25] LABS: HCT 40.4 % (36.0-46.0); HGB 12.8 g/dL (11.2-15.7); MCH 28.1 pg (27.0-33.0); MCHC 31.7 % (32.0-36.0); MCV 89 fL (80-95); MPV 9.8 fL (8.0-11.0); Platelet Count 192 10^3/uL (130-400); RBC 4.55 10^6/uL (3.93-5.22); RDW 13.3 % (11.7-14.6); RDW-SD 43.6 fL; WBC 7.36 10^3/uL (4.4-10.8)
[2024-11-21 11:48] LABS: Anion Gap 5.4 mmol/L (3-11); BUN 14 mg/dL (7-18); CO2 29.6 mmol/L (21.0-32.0); CREATININE 0.9 mg/dL (0.55-1.02); Chloride 107 mmol/L (98-107); Estimated GFR 68.35 (mL/min/1.73m2); Glucose 122 mg/dL (74-106); Potassium 4.1 mmol/L (3.5-5.1); Sodium 142 mmol/L (136-145)
== END 2024-11-21 02:38 | disposition home or self-care (01) ==
LOC: LBO 02:37
PROVIDERS: PCP Nurse Practitioner Family; Visit Provider Student in an Organized Health Care Education/Training Program
DX: M17.12 Unilateral primary osteoarthritis, left knee (principal); Z01.818 Encounter for other preprocedural examination
CPT/HCPCS: 36415; 80048; 85027

== ENCOUNTER 2024-12-07 07:54 | Day surgery (SDC) | payer MEDICARE, BC, SELFPAY ==
[2024-12-07] VITALS (23 sets, daily range): BP systolic 130–154; BP diastolic 51–115; PULSE 54–80; RESP 7–21; TEMP 36–36.5; O2SAT 93–99; BMI 37.4
[2024-12-07] MEDS: Gabapentin 300 MG CAP PO (08:31)
[2024-12-07] MEDS: Celecoxib 200 MG CAP 400 MG PO (08:31)
[2024-12-07] MEDS: Acetaminophen 500 MG TAB 1000 MG PO (08:32)
[2024-12-07] MEDS: Lactated Ringers 1,000 ML 80 ML IV (08:45)
--- NOTE | 2024-12-07 08:58 | W.ANESPRE ---
General Info Date of Service Date Performed: 12/07/24 Height: 5 ft 5 in Weight: 102 kg Body Mass Index (BMI): 37.4 Surgical Procedure: Operation Date: 12/07/24 10:10 Proposed Procedure Side Surgeon p Knee Total Arthroplasty w/OrthAlign, Cementless CR Left Agusto Godwin MD Meds Allergies and Home Medications Allergies Allergy/AdvReac Type Severity Reaction Status Date / Time latex Allergy Severe Anaphylaxsi Verified 12/07/24 08:27 s Home Medication ?Medication ?Instructions ?Recorded calcium 600 mg (as 1 ea PO DAILY 07/18/13 carbonate)-vitamin D3 5 mcg (200 unit) tablet multivitamin 1 ea PO DAILY 07/18/13 atorvastatin 40 mg tablet 40 mg PO QHS #90 tabs 12/21/23 hydrochlorothiazide 25 mg tablet 25 mg PO DAILY #90 tabs 02/29/24 potassium chloride 20 mEq 20 meq PO DAILY #90 tabs 02/29/24 tablet,extended release amiloride 5 mg tablet 5 mg PO DAILY #90 tabs 03/22/24 carvedilol 12.5 mg tablet 12.5 mg PO BID #180 tab-caps 03/22/24 levothyroxine 125 mcg tablet 125 mcg PO DAILY #90 tab-caps 03/22/24 omega 5-zso-via-fish oil 300 1 cap PO DAILY 11/21/24 mg-1,000 mg capsule,delayed release acetaminophen 500 mg tablet 1,000 mg (2 x 500 mg) PO TID #90 12/07/24 tabs aspirin 81 mg tablet,delayed 81 mg PO BID #60 tabs 12/07/24 release celecoxib 200 mg capsule 200 mg PO BID #60 caps 12/07/24 dexamethasone 4 mg tablet 4 mg PO DAILY #2 tabs 12/07/24 gabapentin 300 mg capsule 300 mg PO QHS #14 caps 12/07/24 oxycodone 5 mg tablet 5 mg PO Q4H PRN pain #20 tabs 12/07/24 pantoprazole 40 mg tablet,delayed 40 mg PO DAILY #30 tabs 12/07/24 release Current Visit Medications: Current Medications Generic Name Dose Route Start Last Admin Trade Name Freq PRN Reason Stop Dose Admin Acetaminophen 1,000 mg 12/07/24 06:00 12/07/24 08:32 Acetaminophen 500 Mg Tab PO 12/07/24 23:59 1,000 mg PREOP ELIANE Administration Celecoxib 400 mg 12/07/24 06:00 12/07/24 08:31 Celecoxib 200 Mg Cap PO 12/07/24 23:59 400 mg PREOP ELIANE Administration Gabapentin 300 mg 12/07/24 06:00 12/07/24 08:31 Gabapentin 300 Mg Cap PO 12/07/24 23:59 300 mg PREOP ELIANE Administration Ringer's Solution 1,000 mls @ 80 mls/hr 12/07/24 08:00 12/07/24 08:45 IV 01/06/25 07:59 80 mls/hr INFUSION ELIANE Administration Cefazolin Sodium/Dextrose 2 gm in 50 mls @ 100 mls/hr 12/07/24 08:00 Ancef Duplex IVPB 01/06/25 07:59 PREOP ELIANE Tranexamic Acid/Sodium Chloride 1,000 mg in 100 mls @ 600 mls/hr 12/07/24 08:00 IVPB 01/06/25 07:59 PREOP ELIANE IV Miscellaneous Supplies 1 each 12/07/24 06:00 Iv Access IV 12/07/24 23:59 DIRECTED ELIANE Sodium Chloride 0 ml 12/07/24 06:00 Normal Saline Flush 10 Ml Syr IV 12/07/24 23:59 PRN PRN Sodium Chloride 0 ml 12/07/24 06:00 Normal Saline 10 Ml Vial IJ 12/07/24 23:59 DIRECTED PRN Sterile Water 0 ml 12/07/24 06:00 Water,Injection,Sterile 10 Ml Vial IJ 12/07/24 23:59 DIRECTED PRN PFSH Active Problems Active Problems: Problem Status Onset Code History of total left knee replacement Acute 12/07/24 Z96.652 Arthritis of left knee Acute M17.12 Allergic rhinitis Acute J30.9 Essential hypertension Acute I10 Generalized osteoarthrosis Acute M15.9 Hypothyroidism Acute 08/11/13 E03.9 Obesity Acute E66.9 Psoriasis Acute L40.9 Varicose veins of lower extremity Acute I83.90 Insomnia Acute G47.00 Lipoma Acute D17.9 Prediabetes Acute R73.03 Hyperlipidemia Acute E78.5 Medical History Medical History Psoriasis Primary osteoarthritis of left knee DEPO MEDROL 04/13/23; 07/21/22 Primary osteoarthritis of right knee Primary osteoarthritis of right hip Low HDL (under 40) History of tobacco use smoked 1 pack/day ages [age] High triglycerides Surgical History Surgical History (Updated 12/07/24 @ 08:48 by Afshin Hoffmann RN) History of total right hip replacement (04/08/22) DOS 04/08/22 History of dilation and curettage History of section Repair of umbilical hernia (~2001) x 2 Tobacco Smoking/Tobacco Use Status: Former Tobacco Use Passive smoking exposure: No Second hand exposure: Yes Alcohol Alcohol Intake: never Substance Use Substance use: Never Substance use type: does not use Vital Signs and Lab Results Vital Signs Most Recent Vital Signs in EMR: Most Recent Vital Signs Temp Pulse Resp BP Pulse Ox 36.5 C 80 20 143/84 H 99 12/07/24 08:20 12/07/24 08:20 12/07/24 08:20 12/07/24 08:20 12/07/24 08:20 Lab Results Blood Type / Crossmatch: No Data to Display Complete Blood Count: White Blood Count 7.36 10^3/uL (4.4-10.8) 11/21/24 11:10 Red Blood Count 4.55 10^6/uL (3.93-5.22) 11/21/24 11:10 Hemoglobin 12.8 g/dL (11.2-15.7) 11/21/24 11:10 Hematocrit 40.4 % (36.0-46.0) 11/21/24 11:10 Platelet Count 192 10^3/uL (130-400) 11/21/24 11:10 Complete Metabolic Panel: Sodium 142 mmol/L (136-145) 11/21/24 11:10 Potassium 4.1 mmol/L (3.5-5.1) 11/21/24 11:10 Chloride 107 mmol/L (98-107) 11/21/24 11:10 Carbon Dioxide 29.6 mmol/L (21.0-32.0) 11/21/24 11:10 BUN 14 mg/dL (7-18) 11/21/24 11:10 Creatinine 0.9 mg/dL (0.55-1.02) 11/21/24 11:10 Est GFR (CKD-EPI 2020) 68.35 (mL/min/1.73m2) 11/21/24 11:10 Calcium 9.0 mg/dL (8.5-10.1) 11/21/24 11:10 Glucose 122 mg/dL (74-106) H 11/21/24 11:10 Liver Function Panel: No Data to Display Coagulation Panel: No Data to Display Cardiac Panel: No Data to Display Arterial Blood Gas: No Data to Display Venous Blood Gas: No Data to Display Pancreas Panel: No Data to Display Thyroid Panel: No Data to Display Infectious Disease: No Data to Display Blood Cultures: No Data to Display Toxicology Panel: No Data to Display Anesthesia Assessment and Plan Anesthesia History Personal History: No History of Anesthesia Complications Family History: No Family History of Anesthesia Complications Exercise Tolerance Exercise Tolerance: Metabolic Equivalents>4 Pertinent Negatives Pertinent Negatives: No Symptoms of GERD, No Major Cardiovascular Symptoms or Complaints, No Major Pulmonary Symptoms or Complaints and No History of CVA/TIA Cardiac & Pulmonary Exam Cardiac Exam: Normal S1/S2 Heart Sounds Pulmonary Exam: Clear Bilateral Breath Sounds Implantable Cardiac Device Does patient have a Pacemaker or an ICD?: No Airway Exam Known Difficult Airway: No Mallampati Class: 2 Mouth Opening: Normal (> 3cm) Thyromental Distance: Greater than 3 cm Neck Range of Motion: Full ROM Neck Circumference: Normal Teeth Condition: Normal Dentition ASA Classification ASA Score: ASA 2 Emergency Case?: No NPO Status NPO Status: NPO Clears >2 hours, Solids >8 hours Anesthesia Plan Resuscitation Status: Full Code Anesthesia Technique: Spinal Anesthesia Airway Planned: Natural Airway Pain Management: Surgeon and patient request nerve block Monitors Used: Standard Monitors
--- NOTE | 2024-12-07 09:30 | PDOC.DSDIS_ITS ---
Date of service: 12/07/24 Discharge Plan Disposition Patient Disposition: Home Condition: Good Discharge Details Reason For Visit: L TKR Attending Provider: Agusto Godwin Primary Care Provider: Nila Palma Home Meds and New Rx's Prescriptions: New celecoxib 200 mg capsule 200 mg PO BID Qty: 60 0RF aspirin 81 mg tablet,delayed release (DR/EC) 81 mg PO BID Qty: 60 0RF acetaminophen 500 mg tablet 1,000 mg PO TID Qty: 90 3RF pantoprazole 40 mg tablet,delayed release (DR/EC) 40 mg PO DAILY Qty: 30 0RF dexamethasone 4 mg tablet 4 mg PO DAILY Qty: 2 0RF gabapentin 300 mg capsule 300 mg PO QHS Qty: 14 0RF oxycodone 5 mg tablet 5 mg PO Q4H MDD 6 tabs PRN (Reason: pain) Qty: 20 0RF Continued omega 3-jog-qca-fish oil 300-1,000 mg capsule,delayed release(DR/EC) 1 cap PO DAILY calcium carbonate-vitamin D3 1 EACH tablet 1 ea PO DAILY multivitamin 1 EACH capsule 1 ea PO DAILY atorvastatin 40 mg tablet 40 mg PO QHS Qty: 90 3RF hydrochlorothiazide 25 mg tablet 25 mg PO DAILY Qty: 90 3RF potassium chloride 20 mEq tablet extended release 20 meq PO DAILY Qty: 90 3RF levothyroxine 125 mcg tablet 125 mcg PO DAILY Qty: 90 4RF carvedilol 12.5 mg tablet 12.5 mg PO BID Qty: 180 4RF amiloride 5 mg tablet 5 mg PO DAILY Qty: 90 4RF Discontinued Advil PM 200-38 mg tablet 1 cap PO QHS PRN Discharge Instructions Additional Instructions: Total Knee Discharge Instructions Activity: The most important activity is to walk and to work on gentle motion (both flexion and extension). You should try to take short walks a few times a day. It is important that when resting you work on keeping the knee straight. Avoid putting a pillow behind the knee as this will encourage flexion. Work on range of motion exercises as provided by Physical Therapy. - Start outpatient physical therapy within 2 weeks. - You should wear the MICHELL hose on both legs for 2 weeks. You may remove these at night. You may also use any compression sock in place of the MICHELL hose. - Utilize [employer] to review exercises, see videos on exercises and obtain basic information pertaining to your surgery and your recovery. Dressing: Remove the Matthew wrap by 2 days after your surgery and put on the MICHELL stocking given to you from the hospital. Keep the surgical dressing (underneath the MATTHEW wrap) in place for at least one week. After the first week it may be removed and replaced with light gauze and tape or nothing. The wound and dressing may get wet after 3 days but avoid soaking the dressing or otherwise it will need to be changed. Many people prefer covering the dressing with cling wrap (saran wrap) to minimize it from getting soaked. If it gets wet, just pat dry. If it starts to peel off then it will need to be changed. Medications: - You should take Tylenol and anti-inflammatory Celebrex as your primary pain control medications. If the Celebrex is too expensive or not covered, please call the office for another alternative (Advil/Ibuprofen or Naproxen/Aleve) - You have been prescribed a stronger pain medication Oxycodone for breakthrough pain, take as needed as prescribed. - You have also been prescribed a stomach acid reduction agent Pantoprozole to help reduce stomach acid and reflux. - You have been prescribed Gabapentin to take at night for restlessness and nerve pain. - You will be taking Aspirin 81mg twice a day for DVT prevention unless instructed otherwise. - You have also been prescribed Decadron to take to control post-operative nausea and pain. You will start this tomorrow. - If you have constipation you should take Colace or Miralax (both over-the- counter). It takes most people 3-4 days to have a bowel movement. Follow-up: 2 weeks If you have any acute concerns or questions, please do not hesitate to contact the office at [phone]. You may contact Dr. Godwin with any questions after hours through the hospital at [phone] or on his cell phone at [phone]. Stand Alone Forms: Anesthesia Discharge InstPetros Brown.Nerve Block Instructions, Padmini Horowitz (DSU) Referrals: Agusto Godwin MD [ [facility] STAFF PHYSICIAN] - 12/22/24 10:00 am Equipment/Supplies: Walker Activity:: Activity as Tolerated Shower/Bathe:: 72 hours Diet:: As Tolerated Discharge Orders Discharge Orders: Discharge Order (Routine); Ordered 12/07/24 Ordered By: Zackery Vicente DS: Diagnosis Discharge Diagnosis (1) Arthritis of left knee: Status: Acute (2) History of total left knee replacement: Status: Acute
--- NOTE | 2024-12-07 10:05 | W.ANESNERVE ---
Nerve Block Single Injection Procedure Date and Time Date Performed: 12/07/24 Procedure Start: 09:40 Location Where Procedure Performed Procedure Location: Day Surgery Unit Reason Performed: Postoperative Analgesia Requesting Provider: Agusto Godwin Timeout Performed Timeout Performed: Yes Monitoring Used ECG, Blood Pressure, SpO2 and See EMR for corresponding vital signs Sterility Sterility: Hand Hygiene, Surgical Cap, Surgical Mask, Sterile Gloves, Sterile Drape/Sheet and Chlorhexidine Sedation Given During Procedure Sedation Given (Indicate Dose Given): Versed IV Dose:: 2 mg Patient Mental Status Patient Mental Status: Sedate with meaningful communication Nerve Block 1st Nerve Block: Laterality: Left Block Type: Adductor Canal Ultrasound Image Saved?: Yes Needle / Catheter Used: 100mm SonoPlex II Local Anesthetic Bolus (Indicate Dose Given): Lidocaine used for local infiltration of skin, Injected in 3-5ml increments after negative blood aspiration and Bupivacaine 0.25% Dose:: 17 ml Additives (Indicate Dose Given): None Ultrasound: Sterile probe cover and gel used Nerve Stimulator: Supplement to Ultrasound use and No twitch or parasthesia noted < 0.5 mA Paresthesia: None Procedure Tolerated: No Complications and Patient tolerated well Procedure Outcome: Successful Performed By: Christie Muse
[2024-12-07] MEDS: ceFAZolin 2 GM/50 ML BAG IVPB (10:07)
[2024-12-07] MEDS: TRANEXAMIC ACID/SOD. CHL. 1,000 MG/100 ML BAG 600 MG IVPB (10:21)
--- NOTE | 2024-12-07 14:16 | PT.INIE ---
PT Notes Visit Reasons: L TKR Physical Therapy Day Surgery Initial Evaluation Date: 12/07/2024 Referring Doctor: SOLANGE [place], Dr. Godwin PT Orders: PT CONSULT: Status post Ortho surgery Precautions: WBAT left LE,TEDS x 2 weeks Patient Profile/Admitting Diagnosis: Patient is 69-year-old female presenting status post elective left TKA under spinal anesthesia by Dr. Godwin on 12/07/2024. Postop uncomplicated PMHX: OA left knee, allergic rhinitis, essential hypertension, hypothyroidism, obesity, psoriasis, varicose veins BLE, insomnia, lipoma, prediabetes, hyperlipidemia Social History/Home Situation: Patient resides at home with her in a one-story home with 3 steps to enter with bilateral rails onto her porch and 1 step into the home. She is independent with ADLs, ambulation, home management, meal prep, driving and shopping. reports he will assist with laundry in the basement. She reports she gets out of bed on the left-hand side. Equipment Owned/DME: FWW, SPC Subjective: Pt reports she feels good and ready to go home Objective: [] General Observation:alert female semireclined on stretcher with ryocuff to left knee. Her was present throughout session Mental Status: A+ O x 4 cooperative motivated , agreeable to participate Pain: 0/10 at rest , 2 /10 left knee with ambulation ROM: [] Right Upper Extremity: WNL Left Upper Extremity: WNL Right Lower Extremity: WFL Left Lower Extremity: hip WFL (limited by soft tissue approximation , knee 0-98 degrees, ankle DF to neutral Strength: [] Right Upper Extremity: 5/5 Left Upper Extremity: 5/5 Right Lower Extremity: 5/5 Left Lower Extremity: Hip flexion: 3- /5; hip abduction: 3- /5; hip extension:3- /5; knee extension: 3 /5; knee flexion: 2+ /5 ankle DF: 3 /5 ; ankle PF: 3 /5, needs cues to facilitate quad set without compensation. , able to perform a SLR in limited ROM after cueing for quad set with towel roll under knee. Sensation: Intact Bed Mobility/Transfers: Supine to sit independent Sit to stand Supervision Stand to sit Supervision with cues to reach back Bed to chair Supervision with FWW with cues for safe approach with FWW . Pt tendency to park FWW off to side then take steps to sit on chair. Gait:amb with FWW 160 feet Supervision with cues for quad activation at mid stance to improve stability. Reciprocal pattern noted with decrease knee flexion and increased hip hike for clearance. Balance: [] Static Sitting: Normal Dynamic Sitting: Good Static Standing: Good Dynamic Standing: Fair plus Special Tests: [] Mobility Limitations Standardized Measure [] [facility] AM-PAC 6 clicks Basic Mobility Inpatient Short Form: [] Raw Score:23 CMS Score:11.205 Informed Consent/Education: Patient instructed in purpose of PT consult. Packet containing TKA exercise protocol has been given to patient. Education and training on initial set of exercises that can be done at home have been completed with patient. Assessment: Patient is a 69 yo female presents with clinical signs and symptoms consistent with current/admitting diagnoses that have resulted to mobility limitations, gait instability, generalized weakness, and impairment of motor control as demonstrated by the following impairment level findings: 1. Decreased strength to left knee major muscle groups 2. Impaired standing balance 3. Limitation of joint range of motion in left knee 4. Impaired functional activity tolerance Impairments are contributing to the following functional limitations: 1. Inability to safely ambulate without assistive device 2. Increase completion time for mobility ADL performance 3. Increased fall risk 4. Inability to perform stairs without assistance safely Patient is assessed as a low complexity based on the following: History: 69 year-old female with impairment level findings, functional limitations, and past medical history as indicated above Examination: Demonstrable impairment in strength, balance, and mobility level with underlying impairments and functional limitations as documented above Presentation: stable Decision Making:low Goals: N/A. PT evaluation only Plan of Care/Treatment Plan: N/A. DISCHARGE RECOMMENDATIONS: Home with HEP and Outpatient PT as scheduled TREATMENT CODE/TIME:02763 x 28 mins / [id number] Thank you for the opportunity to participate in the care of this patient. [facility]
--- NOTE | 2024-12-07 14:54 | W.PM.OP ---
Operative Note Operative Note PRE-OP DIAGNOSIS: Left Knee Osteoarthritis with severe varus deformity POST-OP DIAGNOSIS: same PROCEDURE: Left Total Knee Replacement with Intraoperative Navigation SURGEON: Agusto Godwin HYPERBARIC TECHNICIAN: Zeus Vicente ANESTHESIA TYPE: Spinal Refer to Anesthesia Record ESTIMATED BLOOD LOSS: 300 PATHOLOGY: none sent TOURNIQUET TIME: 0 COMPLICATIONS: None Patient was transported to: PACU Patient's condition: stable Implants: 1. Depuy Attune Cementless Cruciate Retaining Femoral Component, Size 7 2. Depuy Attune Cementless Fixed Bearing Tibial Component, Size 5 3. Depuy Attune 7x10mm CR/FB Poly 4. Depuy Attune Patellar Component, Size 35 Indications: I have seen Kiley in clinic for symptoms of LEFT knee arthritis, confirmed with radiographic findings. She has exhausted nonoperative methods and was having significant limitations in daily function and desired better function and less pain. I discussed the technical details of a knee replacement. I explained the risks of the procedure to include, but not limited to, bleeding, infection, pain, stiffness, fracture, damage to nerves and vessels, damage to muscles and tendons, loosening, need for repeat procedure, blood clot and cardiopulmonary demise. Despite these risks, Kiley elected to proceed. Findings: There was significant signs of arthritis throughout the knee with large osteophytes and eburnated bone. There was notable deformity posteriorly with large osteophytes throughout. Procedure Description: Kiley was greeted in the preoperative holding area where the correct side was identified and marked. The consent was reviewed with the patient and signed. The history and physical was updated. All questions were answered. Preoperative mediacations were administered: Acetaminophen 1000mg, Celebrex 400mg, and Gabapentin 300mg. An adductor canal block was then administered by the anesthesia team in the D[facility]. Kiley was taken back to the operating room. A spinal anesthestic was then administered. The patient was placed into the supine position on the operating room table. Posts were placed for positioning during the procedure. All bony prominences were well padded. Prophylactic antibiotics in the form of Cefazolin were administered. 1g of Tranxemic Acid was given intravenously within 30 minutes of incision. The left leg was then prepped with Chloraprep and draped in a standard fashion with impervious stockinette. A second prep with Chloraprep was performed prior to application of Iodine impregnated skin protection. A timeout to confirm correct identity, side and site, procedure, allergies, anesthesia, and medical concerns was performed. With the knee in some flexion, a midline incision was made overlying the knee. Full thickness skin flaps were raised once the extensor mechanism was encountered. These were raised medially and laterally. Any bleeding was controlled with electrocautery. Once the extensor mechanism was fully exposed, a medial parapatellar arthrotomy was performed in a flexed position. All bleeding from the arthrotomy and the geniculate arteries was coagulated. A medial subperiosteal peel was performed with electrocautery to the midcoronal plane. Due to the significant varus deformity the entire medial tibial plateau was exposed. The fat pad was removed while keeping the patellar tendon protected. The anterior distal femur synovium was removed for later visualization. The ACL and PCL were resected and the anterior horn of the lateral meniscus was transected. The knee was then flexed with the patella everted. Large osteophytes from the tibia were removed. Large osteophytes from the femur were removed. There were abundant osteophytes throughout and eburnated bone. A single starting pin was then placed 1cm anterior to the PCL insertion and the notch in the direction of the femoral head. The OrthoAlign device was applied over the pin. It was oriented to be in line with the epicondylar axis and the trochlear groove. It was then pinned into place. The navigation computer was then turned on and calibrated. The distal femur cut was set at 1 degrees varus and 3.5 degrees flexion. The distal femur cutting guide then was positioned for a 9mm cut. The distal femur was cut with an oscillating saw while protecting the soft tissues. The tibia was then addressed. The OrthoAlign device was placed over the tibial tubercle and medial tibia and secured into position. Once again, OrthoAlign was calibrated and then set for a 2 degree varus cut and 5 degrees of posterior slope. With this locked into position, the cut thickness stylus was used to assess cut thickness. The medial side, most involved side, was set for a 3mm cut. This was then held in position and pinned into place with 2 additional pins and a cross pin for stability. The medial and lateral collateral ligaments were protected and the cut was performed. With this completed, it was assessed and noted to be of appropriate dimensions. The guide and OrthoAlign was removed. A spacer block was inserted and the knee was brought into extension to ensure enough space was present. . The Orthoalign gap balancing device was then placed in extension. This was used to ensure that the ligaments were properly balanced with up to 2 to 3 mm laxity laterally compared medially. The extension gap was measured as 20mm. The knee was then brought into 90 degrees of flexion and the ligament vocational aide was once again placed. Under the same amount of force the flexion gap was measured. The Attune specific jig was placed and the flexion gap was made to match the extension gap. The femur was then sized as a size 7. The 4-in-1 cutting guide was the placed. An joe wing was used to confirm appropriate position of the anterior cut to avoid notching. This cutting guide was ensured to be flush on the cut surface and then pinned into place with headed pins. While protecting the soft tissues, quad tendon, and collateral ligaments, the anterior and posterior cuts were performed with a saw. The central two pins were removed and the posterior and anterior chamfers were cut next. The notch-cutting guide was placed. This was pinned to lateralize the femoral component as much as possible while keeping it flush on the cut surface. This was then pinned into position. A saw was used to make the notch cut. A rasp smoothed the cut surfaces. The medial and lateral menisci were removed. I then used a pituitary rongeur along with a curved osteotome to remove large osteophytes from the posterior femoral surface. A trial femoral component was then inserted, impacted down to the cut surfaces, and the lug holes were drilled. A provisional trial tibial component was placed and the knee was brought through range of motion. The polyethylene was trialed until there was good flexion and extension with excellent stability to the medial and lateral collaterals. The patella was tracking without thumbs. A size 10mm polyethylene component provided the best range of motion and stability with less than 2mm gapping with medial and lateral stress and full extension without significant hyperextension. The tibial cut surface was fully exposed. The tibia was then sized as a 5. The tibia had been previously marked during trialing to correspond to the center of the tibial component to help with rotation. The trial was aligned to this zeus, approximately rotated to the medial 1/3rd of the tibial tubercle. The trial was pinned into place. The tibia was prepared with a reamer and a keel punch and lug holes. The knee was then brought into extension and the patella was measured as 22mm. Using the patellar clamp and cut guide, this was resected to a flat surface with at least 13mm of thickness remaining. The size 35 patella fit the best. This was oriented and then clamped into position. The lugs were drilled. The trial components were removed. The final components were opened on the back table. The periosteal and capsular tissues, especially posteriorly, around the knee were then systematically injected with a periarticular cocktail consisting of 246mg of Ropivacaine, 0.5mg of Epinephrine, 0.08mg of Clonidine, and 30mg of Ketorolac, diluted to 100cc. On the back table, with the implants opened, the cement was mixed. One batch of high viscosity cement was prepared with vacuum assistance. After the cement was ready a small amount was placed on the cut surface of the patella and the patellar button was clamped into position and held. While the cement was hardening, the cementless knee components were placed. Starting with the tibial component, the tibia was subluxed anteriorly and the lug holes of the component were lined up. The tibia was then impacted with an impactor and mallet until the tibial component was in contact with the tibia. Then, the femoral component was inserted. The lug holes were aligned and the component was impacted into position. The final polyethylene component was inserted. The knee was irrigated with Surgiphor Betadine solution. This was allowed to sit in the knee for 3 minutes and then it was thoroughly irrigated out with saline. After the cement had finally cured, approximately 15min, the clamp was removed from the patella and the knee was taken through range of motion. The patella was tracking with a no-thumbs technique. The capsule was then reapproximated with a No. 1 Vicryl at multiple locations. The capsule was finally closed with a No. 2 Stratafix, barbed suture. Deep tissues were then reapproximated with 0 Vicryl and 2-0 Vicryl. The skin was closed with a running 3-0 Monocryl in a subcuticular fashion. This was reinforced with skin glue. A Mepilex silver dressing was applied along with a [id number]-sy-wlrtw RORO wrap. A CryoCuff was applied. Kiley was transferred to the hospital bed without difficulty an suffering no apparent complication. Kiley has a good prognosis. Physical therapy will start today and without restrictions, weight-bearing as tolerated. Aspirin 81mg BID will be used for DVT prophylaxis. Date of Procedure: 12/07/24
[2024-12-07] MEDS: Tranexamic Acid 650 MG TAB 1300 MG PO (15:01)
--- NOTE | 2024-12-07 15:29 | W.ANESPOSTOP ---
Postoperative Evaluation Date, Time and Location Date Performed: 12/07/24 Time Performed: 15:29 Patient Location: Day Surgery Unit Vital Signs Most Recent Imported Vital Signs: Most Recent Vital Signs Temp Pulse Resp BP Pulse Ox 36 C L 63 16 142/62 H 95 12/07/24 13:26 12/07/24 13:26 12/07/24 13:26 12/07/24 13:26 12/07/24 13:26 Pain Score Most Recent Pain Score: Most Recent Pain Score Pain Level 0 12/07/24 13:26 Assessment Mental Status: Awake (Alert & Oriented to Patient Baseline) Airway and Respiratory Function: Patent airway with normal (patient baseline) respiratory exam Cardiovascular Function: Hemodynamically Stable Hydration Status: Adequately Hydrated Nausea & Vomiting: No Nausea or Vomiting Pain: Pain is tolerable per patient Peripheral Nerve Block: Regional nerve block not resolved at time of post operative discharge
== END 2024-12-07 15:20 | disposition home or self-care (01) ==
PROVIDERS: PCP Nurse Practitioner Family; Visit Provider Student in an Organized Health Care Education/Training Program
PROC: (CPT 27447; principal; 2024-12-07 10:00)
DX: M17.12 Unilateral primary osteoarthritis, left knee (principal); G89.18 Other acute postprocedural pain; M25.562 Pain in left knee; I10 Essential (primary) hypertension; E78.5 Hyperlipidemia, unspecified; R73.03 Prediabetes
CPT/HCPCS: 27447; C1776; 64447; 97161; J0665; J0690; J1100; J2250; J2371; J2401; J2405; J2704

== ENCOUNTER 2024-12-22 15:32 | Outpatient (CLI) | payer MEDICARE, BC, SELFPAY ==
--- NOTE | 2024-12-22 10:00 | DI.RAD_ITS ---
Exam(s) XR KNEE LT 1V XR STANDING ALIGNMENT EXAM: XR STANDING ALIGNMENT and XR knee LT 1 V CLINICAL HISTORY: F/U LEFT TKA. TECHNIQUE: 2D digital imaging was performed. Five images were obtained. COMPARISON: CR XR STANDING ALIGNMENT from 10/13/2024 CR XR KNEE LT 1V from 10/13/2024 CR XR KNEE LT 1V from 12/22/2024 FINDINGS: BONES: The patient has a right total hip arthroplasty. There has been interval placement of a left t otal knee arthroplasty. The orthopedic hardware appears in good position. In the right knee, there are marked degenerative changes present. Findings are characterized by joint space narrowing and ost eophytes. The findings are most marked in the lateral femoral tibial joint. The ankles are well trina ntained.There is no significant leg length discrepancy. SOFT TISSUE: Normal. IMPRESSION: 1. Stable left total knee arthroplasty. 2. Marked osteoarthritis of the right knee. DATA REPOSITORY: RADIATION DOSE DELIVERED:
== END 2024-12-22 15:33 | disposition home or self-care (01) ==
LOC: DIORS 15:34
PROVIDERS: PCP Nurse Practitioner Family; Referring Provider Nurse Practitioner Family; Visit Provider Physician Assistant
DX: Z96.652 Presence of left artificial knee joint (principal); Z47.1 Aftercare following joint replacement surgery
CPT/HCPCS: 99024; 73560; 77073

== ENCOUNTER → 2025-01-19 10:11 | Outpatient (BNVA) | payer MEDICARE, BC, SELFPAY | PROVIDERS: PCP Nurse Practitioner Family; Referring Provider Nurse Practitioner Family | DX: Z47.1 Aftercare following joint replacement surgery (principal); Z96.652 Presence of left artificial knee joint | CPT/HCPCS: 99024 ==

== ENCOUNTER → 2025-02-27 10:53 | Outpatient (BNVA) | payer MEDICARE, BC, SELFPAY | PROVIDERS: PCP Nurse Practitioner Family; Referring Provider Nurse Practitioner Family; Visit Provider Student in an Organized Health Care Education/Training Program | DX: Z47.1 Aftercare following joint replacement surgery (principal); Z96.652 Presence of left artificial knee joint | CPT/HCPCS: 99024 ==

== ENCOUNTER 2025-03-08 02:17 | Outpatient (CLI) | payer MEDICARE, BC, SELFPAY ==
[2025-03-08 12:42] LABS: Hemoglobin A1C 5.7 % (<5.7)
[2025-03-08 12:53] LABS: ALT 28 U/L (14-59); AST 29 U/L (15-37); Albumin 3.1 g/dL (3.4-5.0); Alkaline Phosphatase 85 U/L (46-116); Anion Gap 4.3 mmol/L (3-11); BUN 16 mg/dL (7-18); Bilirubin, Total 0.7 mg/dL (0.2-1.0); CO2 30.7 mmol/L (21.0-32.0); Calcium 9.2 mg/dL (8.5-10.1); Calculated LDL 33 mg/dL (<100); Chloride 108 mmol/L (98-107); Cholesterol 109 mg/dL (<200); Estimated GFR 60.23 (mL/min/1.73m2); Glucose 116 mg/dL (74-106); HDL Cholesterol 39 mg/dL (>or=50); Potassium 3.8 mmol/L (3.5-5.1); Sodium 143 mmol/L (136-145); TSH (W/Ref FT4) 0.77 uIU/mL (0.36-3.74); Total Protein 7.7 g/dL (6.4-8.2); Triglyceride 185 mg/dL (<150)
== END 2025-03-08 02:18 | disposition home or self-care (01) ==
LOC: LOS 02:17
PROVIDERS: PCP Nurse Practitioner Family; Visit Provider Nurse Practitioner Family
DX: I10 Essential (primary) hypertension (principal); E78.5 Hyperlipidemia, unspecified; R73.03 Prediabetes; E03.9 Hypothyroidism, unspecified
CPT/HCPCS: 36415; 80053; 80061; 83036; 84443

== ENCOUNTER 2025-03-29 00:41 | Outpatient (CLI) | payer MEDICARE, BC, SELFPAY ==
--- NOTE | 2025-03-29 12:17 | DI.MAMMO_ITS ---
Exam(s) MAMMO SCREENING EXAM: MAMMO SCREENING CLINICAL HISTORY: screening,z12.39 TECHNIQUE: Mammograms were interpreted according to the usual protocol including computer analysis w fluid Operations CAD system, tomosynthesis and C-view imaging. COMPARISON: 2017 through 2022 FINDINGS: The breasts are composed of scattered fibroglandular densities, Breast Density category B. No suspicious masses or suspicious microcalcifications are seen. No skin thickening or abnormal axillary lymph nodes are seen. There has been no significant change from prior exams. IMPRESSION: BI-RADS Category 1, Negative mammogram Yearly screening mammography is recommended. Breast Density - Category B, scattered fibroglandular densities. Breast density Category C or D implies that the patient has dense breast tissue. Dense breast tissue can make it harder to find cancer on a mammogram. Dense breast tissue is also associated with an incr eased risk of breast cancer. This information about the result of the mammogram report was provided to the patient to raise their awareness. Use this report when you speak with the patient about their risks for breast cancer, which includes their family history. At that time, you may recommend additional screening tests (Ultrasoun d or MRI) as these tests may add significant information. A negative radiographic report should not delay biopsy if a dominant or clinically suspicious mass is present. Up to ten percent of cancers are not identified on mammography. A negative report may reinforce clinical impression. Adenosis and dense breasts may obscure an underlying neoplasm. False positive reports average 6 to 10%. Patient will receive a letter notifying them of these results.
== END 2025-03-29 01:01 ==
LOC: DI 00:41
PROVIDERS: PCP Nurse Practitioner Family; Visit Provider Nurse Practitioner Family
DX: Z12.31 Encounter for screening mammogram for malignant neoplasm of breast (principal); R92.323 Mammographic fibroglandular density, bilateral breasts
CPT/HCPCS: 77063; 77067